=== PATIENT | male | born 1945 | race Caucasian/White ===

== ENCOUNTER 2019-03-18 14:31 | Outpatient (CLI) | payer MEDICARE, OTHER, SELFPAY ==
--- NOTE | 2019-03-18 | XR_ITS ---
WS: [id number] Chest 2 views, 03/18/2019 Clinical Data: CHRONIC COUGH Comparison: PA and lateral chest, 10/08/2016 Findings: No nodules, masses or effusions are seen. The heart is normal. The pulmonary vascularity is not increased. No pneumonia or pneumothorax is seen. There is flattening of the right diaphragm whic h is secondary to chronic injury rather than acute effusion. There is a fracture of the left sixth ri b and absence of the left seventh rib from surgery. No recurrence of the left pleural effusion is se en. The heart size is normal. No pneumonia or pneumothorax is present. The pulmonary vascularity is n ot increased. There are upper abdominal clips which may be from a cholecystectomy. XR/XR chest 2V* [id number] Impression: 1. Right pleural reaction. 2. Left rib deformity from thoracic surgery. 3. No acute cardiopulmonary disease is seen.
== END 2019-03-18 14:32 | disposition home or self-care (01) ==
LOC: RADOUTREAD 03-19 15:26
PROVIDERS: Family Provider Family Medicine; Visit Provider Family Medicine
DX: Z76.89 Persons encountering health services in other specified circumstances (principal)

== ENCOUNTER 2019-06-09 10:24 | Inpatient (IN) | payer MEDICARE, OTHER, SELFPAY ==
[2019-06-09] VITALS (16 sets, daily range): BP systolic 129–161; BP diastolic 78–97; PULSE 77–90; RESP 4–18; TEMP 36.8–36.9; O2SAT 96–98; BMI 27.9
--- NOTE | 2019-06-09 10:49 | XR_ITS ---
WS: [id number] PORTABLE CHEST HISTORY: gi bleed COMPARISON: 03/18/2019 Lung findings are slightly decreased. Blunting of the costophrenic angles. Pleural thickening at the lung bases is stable. No pneumothorax. Cardiac size: Moderately enlarged cardiac silhouette. Mediastinum/Aorta: Mild atherosclerosis aorta. Healed rib fracture in the posterior mid LEFT thorax. There is evidence for rib dissection in the LEF T thorax also. XR/XR chest 1V portable [id number] IMPRESSION: Chronic blunting of the costophrenic angles and cardiomegaly. No pneumonia.
--- NOTE | 2019-06-09 10:49 | CT_ITS ---
WS: [id number] CT ABDOMEN AND PELVIS WITH CONTRAST HISTORY: gi bleed TECHNIQUE: Imaging performed of the abdomen and pelvis with IV contrast. Single phase imaging of the abdomen. Coronal and sagittal reformats are submitted. All CT scans at [facility] use at least one of these dose optimization techniques: automated exposure control; mA and/or kV adjustment per patient size (includes targeted exams where dose is matched to clinical indication); or iterativ e reconstruction. IV CONTRAST: Omnipaque 300; 95 mL IV. Oral contrast: No DLP: 895.66 mGy.cm COMPARISON: 12/03/2017 Lower thorax: Pleural thickening and atelectasis at the lung bases, RIGHT greater than LEFT. Heart is normal size. No hiatal hernia. Liver/biliary system: Normal size with no intrahepatic dilatation. Gallbladder: Prior cholecystectomy. Pancreas: Marked fatty replacement of the pancreas. Spleen: Normal. Adrenal glands: Normal. Right kidney: Normal. Left kidney: 1 cm cortical cyst upper pole. No obstruction or solid mass. Smaller cortical cyst lower pole. Aorta: Mild atherosclerosis with no aneurysm. Lymphadenopathy: None. Free fluid: None. GI tract: Significant diverticulosis involving a large portion of the colon. Most significant burden in the descending and sigmoid colon. There is diffuse wall thickening in the distal descending throug h sigmoid. No definite diverticulitis. No abscess. Appendix not definitely seen. Abdominal wall: Small fat-containing umbilical hernia. Pelvis: Well-distended urinary bladder. Prostate gland enlargement. No adenopathy or fluid. Bones: Degenerative spondylitic changes. Anterior bridging osteophytes in the lower thoracic spine. CT/CT abdomen pelvis w con* [id number] IMPRESSION: 1. No acute intra-abdominal abscess or ascites. 2. Diffuse lyn diverticulosis. Most significant diverticular burden in the leigh ann cending and sigmoid colon. There is associated bowel wall thickening and mucosa l thickening in the descending and sigmoid region which may be related to chron ic episodes of diverticulitis. More focal thickening at the junction of the leigh ann cending and sigmoid colon. Consider colonoscopy evaluation to exclude neoplasm. 3. Prior cholecystectomy.
--- NOTE | 2019-06-09 11:00 | ED_ITS ---
HPI - General Adult General: Chief complaint: General Medical Stated complaint: RECTAL BLEEDING Time Seen by Provider: 06/09/19 10:40 Review of Systems General: Reports: 10 or more systems reviewed and unremarkable except in HPI a nd below GI: Reports: blood in stool [facility] ED PFSH: Social History Smoking and tobacco status: never smoked Physical Exam Narrative: EXAM NARRATIVE: Patient has had several bowel movements with copious amounts of bright red blood Const: COMMON NORMALS: no apparent distress, oriented x3, alert and well nourished Neck/C-Spine: COMMON NORMALS: no JVD Resp: COMMON NORMALS: normal respiratory effort, no retractions, no use of accessory muscles and clear to auscultation bilaterally AUSCULTATION: clear to auscultation bilaterally Cardio: COMMON NORMALS: no JVD, regular rate and regular rhythm RATE: regular rate RHYTHM: regular rhythm Neuro: COMMON NORMALS: oriented x3 SENSORIUM/ORIENTATION: Yes alert Course Vital Signs: Vital signs: Vital Signs Temperature 98.3 F 06/09/19 10:37 Pulse Rate 87 06/09/19 10:37 Respiratory Rate 16 06/09/19 10:37 Blood Pressure 146/88 06/09/19 10:37 Pulse Oximetry 97 06/09/19 10:37 [facility] - General Adult Lab Data: Labs: Lab Results 06/09/19 06/09/19 06/09/19 Range/Units 11:17 11:17 11:17 WBC 6.1 (4.0-10.0) 10^3/ uL RBC 4.39 (4.1-5.3) 10^6/u L Hgb 13.7 (11.7-16.6) g/dL Hct 41.0 L (42.0-52.0) % MCV 93.4 (80-94) fL MCH 31.2 (28.0-34.0) pg MCHC 33.4 (30.0-36.0) g/dL RDW 13.2 (12.1-15.1) % Plt Count 200 (130-400) 10^3/c mm MPV 11.4 H (7.4-10.4) fL Neut % (Auto) 67.5 % Lymph % (Auto) 22.4 % [place] % (Auto) 8.5 % Eos % (Auto) 0.8 % Baso % (Auto) 0.3 % Neut # (Auto) 4.1 (1.8-7.7) 10^3/u L Lymph # (Auto) 1.4 (0.8-4.8) 10^3/u L [place] # (Auto) 0.5 (0.2-0.9) 10^3/u L Eos # (Auto) 0.1 (0.0-0.8) 10^3/u L Baso # (Auto) 0.0 (0.0-0.1) 10^3/u L Nucleated RBC % (a uto) 0 % Nucleated RBCs # 0.0 /100WBC PT 13.30 (10.5-13.3) SECO NDS INR 1.01 (0.8-1.2) APTT 31.2 (23.9-36.7) SECO NDS Sodium 138 (136-145) mmol/L Potassium 4.1 (3.5-5.1) mmol/L Chloride 101 (98-107) mmol/L Carbon Dioxide 26 (22-29) mmol/L Anion Gap 15.1 (5-19) BUN 22 (8-23) mg/dL Creatinine 0.8 (0.7-1.2) mg/dL Glucose 96 (65-115) mg/dL Calculated Osmolal ity 283 L (285-295) mOsm/k g Calcium 9.0 (8.5-10.5) mg/dL Total Bilirubin 0.6 (0.15-1.2) mg/dL AST 19 (0-40) U/L ALT 13 (0-41) U/L Alkaline Phosphata se 96 (40-130) IU/L Total Protein 6.9 (6.6-8.7) g/dL Albumin 4.1 (3.5-5.2) g/dL Globulin 2.8 (1.3-4.6) g/dL Lipase 6 L (13-60) U/L Discharge Plan Discharge Patient Disposition: Admitted As Inpatient Clinical Impression: Acute GI bleeding Condition: Stable Referrals: Maco Hurtado MD [Family Provider] - Coding Level of Care Code ED Parasitology Teacher for Chg Fwd Exam Expanded Problem Focused
[2019-06-09] MEDS: sodium chloride 0.9% 500 ML IV (11:20)
[2019-06-09] MEDS: pantoprazole 40 mg SDV IVP ×2 (11:20→23:06)
[2019-06-09 11:29] LABS: Basophils % 0.3 %; Eosinophils # 0.1 10^3/uL (0.0-0.8); Eosinophils % 0.8 %; Hemoglobin 13.7 g/dL (11.7-16.6); Lymphocytes # 1.4 10^3/uL (0.8-4.8); Lymphocytes % 22.4 %; Mean Corpuscular HGB Conc 33.4 g/dL (30.0-36.0); Mean Corpuscular Hemoglobin 31.2 pg (28.0-34.0); Mean Corpuscular Volume 93.4 fL (80-94); Mean Platelet Volume 11.4 fL (7.4-10.4); Monocytes # 0.5 10^3/uL (0.2-0.9); Monocytes % 8.5 %; Neutrophils # 4.1 10^3/uL (1.8-7.7); Neutrophils % 67.5 %; Nucleated Red Blood Cells % 0 %; Platelet Count 200 10^3/cmm (130-400); Red Blood Count 4.39 10^6/uL (4.1-5.3); Red Cell Distribution Width 13.2 % (12.1-15.1); White Blood Count 6.1 10^3/uL (4.0-10.0)
[2019-06-09 11:41] LABS: Alanine Aminotransferase 13 U/L (0-41); Albumin Level 4.1 g/dL (3.5-5.2); Alkaline Phosphatase 96 IU/L (40-130); Anion Gap 15.1 (5-19); Aspartate Amino Transferase 19 U/L (0-40); Blood Urea Nitrogen 22 mg/dL (8-23); Carbon Dioxide 26 mmol/L (22-29); Chloride 101 mmol/L (98-107); Globulin 2.8 g/dL (1.3-4.6); Glucose 96 mg/dL (65-115); Lipase 6 U/L (13-60); Osmolality Calculated 283 mOsm/kg (285-295); Potassium 4.1 mmol/L (3.5-5.1); Sodium 138 mmol/L (136-145); Total Bilirubin 0.6 mg/dL (0.15-1.2); Total Protein 6.9 g/dL (6.6-8.7)
[2019-06-09 11:42] LABS: INR 1.01 (0.8-1.2); Partial Thromboplastin Time 31.2 SECONDS (23.9-36.7)
[2019-06-09 12:48] LABS: Lactate (Lactic Acid level) 1.5 mmol/L (0.5-2.2)
[2019-06-09] MEDS: pantoprazole 40 MG in sodium chloride 0.9% (plus) 100 ML 20 MG IV (12:53)
[2019-06-09] MEDS: sodium chloride 0.9% 1,000 ML 100 ML IV ×2 (13:35→23:07)
--- NOTE | 2019-06-09 14:47 | P.HP_ITS ---
Providers/Chief Complaint Admitting Physician: Robbin Quinonez Chief Complaint: GI BLEED History of Present Illness Alessandro Panda is a pleasant 73 year old male with history of recurrent pleural effusion, DM2, episodic hypertension, postanesthesia hypotension, on prophylactic aspirin 81 mg which she forgot to take yesterday and did not take today, presented due to bright red blood per rectum with multiple current jelly bowel movements starting yesterday at 1 PM yesterday. He reports got in touch with Dr. esparzaterday, and was told if it does not improve to get himself assessed. He does not take any other blood thinners. He denies taking NSAIDs. On CT back in 2018 noted to have diverticulosis. He reports that he has had a colonoscopy probably within 5 years, but does not remember the exact date. He denies any abdominal pain. He has had no nausea or vomiting. No fever, chills, cough, shortness of breath, headache, or other similar complaints. In ER his blood pressure is 156/90, heart rate 85, hemoglobin 13.7. Review of Systems Const: Denies: fever, chills, body aches or malaise Eyes: Denies: change in vision or eye redness ENMT: Denies: throat pain, oral sores/lesions or ear pain Card: Denies: chest pain, edema, pre-syncope or shortness of breath on exertion Resp: Denies: shortness of breath, productive cough, change in phlegm color or coughing up blood GI: Reports: blood in stool; Denies: abdominal pain, nausea, vomiting, diarrhea or constipation : Denies: flank pain, difficulty urinating, urinary frequency or blood in urine Musc: Denies: back pain, joint swelling or redness Skin/Breast: Denies: rash, sores or new lesion Neuro: Denies: headache, numbness in extremities, weakness in extremities, dizziness, confusion or seizure-like activity Endo: Denies: excessive urination or excessive thirst Geronimo/Lymph: Denies: easy bleeding or purpura All/Imm: Denies: hives, throat swelling or tongue swelling Medications/Allergies Home Medications Medication Instructions Recorded Confirmed Last Taken Type ascorbic acid (vitamin C) [Vitamin 1,000 mg PO BID 06/09/19 06/09/19 06/08/19 History C] aspirin 81 mg PO DAILY 06/09/19 06/09/19 06/06/19 History diphenhydramine HCl [Benadryl] 25 mg PO BEDTIME PRN 06/09/19 06/09/19 06/07/19 History esomeprazole magnesium 20 mg PO DAILY 06/09/19 06/09/19 06/08/19 History metformin 500 mg PO BEDTIME 06/09/19 06/09/19 06/08/19 History metoprolol tartrate 25 mg PO DAILY 06/09/19 06/09/19 06/08/19 History multivitamin 1 tab PO DAILY 06/09/19 06/09/19 06/08/19 History Allergies Allergy/AdvReac Type Severity Reaction Status Date / Time No Known Allergies Allergy Verified 06/09/19 10:35 PFSH Acute PFSH: Medical History DM type 2 (diabetes mellitus, type 2) Pleural condition Pleurodesis ~2016? Recurrent pleural effusion on left Family History Father Liver disease Mother Colon cancer Smoker Hypertension Atherosclerosis Social History Smoking and tobacco status: light tobacco smoker pipe Pipe Details: Occ in the past Alcohol intake: never Substance/Drug Use: never Lives independently: Yes Household members: spouse Marital status: Current occupational status: retired Vitals/I&O/Wt Last Vital Signs Temp 98.3 F 06/09/19 10:37 Pulse 85 06/09/19 13:09 Resp 16 06/09/19 13:09 BP 156/90 06/09/19 13:09 Pulse Ox 97 06/09/19 13:09 Weight last 48 hrs Weight 93.44 kg Physical Exam Const: COMMON NORMALS: no apparent distress and oriented x3 OTHER: Very pleasant gentleman. Conversant. Facemask on. HENMT: COMMON NORMALS: oropharynx normal Neck/C-Spine: COMMON NORMALS: no JVD Resp: COMMON NORMALS: normal respiratory effort and clear to auscultation bilaterally AUSCULTATION: clear to auscultation bilaterally Cardio: COMMON NORMALS: no JVD, regular rhythm, S1 normal heart sound, S2 normal heart sound and no murmurs RHYTHM: regular rhythm HEART SOUNDS: S1 normal and S2 normal GI: COMMON NORMALS: normal to inspection, nondistended, normoactive bowel sounds, soft to palpation and non-tender PALPATION: Yes soft OTHER: About 50-75 cc of currant appearing stool in the commode. Extremity: COMMON NORMALS: no joint enlargement and no pedal edema Neuro: COMMON NORMALS: oriented x3 and moves all extremities Skin: COMMON NORMALS: no rashes or lesions noted GENERAL SKIN EXAM: no rashes or lesions noted Data : 06/09/19 11:17 06/09/19 11:17 A&P Assessment and plan (1) Acute GI bleeding: Currently only appearing stools, multiple bowel movement since 1 PM yeste rday. He missed his yesterday's aspirin dose, and did not take it today. Hold at this time. On prior CT history of diverticulosis, suspect this is probably the cause of his bleed, and he has had a colonoscopy he thinks within about 5 years, although I do not see a record and old [employer]. Appreciate surgical evaluation. We will recheck hemoglobin. Monitor for need for transfusion. For now he is maintained n.p.o. Monitor hemodynamics in ICU. Status: Acute (2) DM type 2 (diabetes mellitus, type 2): He is n.p.o. for now. Hold metformin for now while in the hospital. Low-dose sliding scale. Status: Acute Additional A&P Information She reports occasional hypotension with anesthesia, states that had episode of low blood pressure for which required several treatments after his surgery about 3 years ago which he describes was done due to recurrent pleural effusion, possibly VATS and pleurodesis. Attestations Medical Necessity Statement*: Admission of over 2 midnights is admitted for assessment management of acute GI bleeding while on antiplatelet medication. Coding Level of Care Code Acute Sign Writer Hand for Javed Rust Diagnoses Acute GI bleeding K92.2 DM type 2 (diabetes mellitus, type 2) E11.9
[2019-06-09 16:37] LABS: Hemoglobin 12.3 g/dL (11.7-16.6)
[2019-06-09 17:27] LABS: Glucose Point of Care 97 mg/dL (70-110)
--- NOTE | 2019-06-09 19:33 | PM.CONSULT ---
Providers/Reason For Consult Consulting Physican/Specialty*: Robbin Quinonez Reason for Consult*: Hematochezia Attending Physician: Robbin Quinonez History of Present Illness History of Present Illness Alessandro Panda is a 73 year old male who is otherwise pretty healthy and presented to the ER with significant amount of bleeding per rectum yesterday. Patient states that he had some lower abdominal pain, but denies any nausea vomiting constipation or diarrhea. No similar episodes in the past. He had colonoscopy 2 years ago when he was told that he had diverticulosis. No significant weight loss. Since admission he has not had any further bloody bowel movements overnight Review of Systems General: Reports: 10 or more systems reviewed and unremarkable except in HPI and below Meds/Allergies Home Medications and Allergies Home Medications Medication Instructions Recorded Confirmed Last Taken Type Benadryl 25 mg PO BEDTIME PRN 06/09/19 06/09/19 06/07/19 History Vitamin C 1,000 mg PO BID 06/09/19 06/09/19 06/08/19 History esomeprazole magnesium 20 mg PO DAILY 06/09/19 06/09/19 06/08/19 History metformin 500 mg PO BEDTIME 06/09/19 06/09/19 06/08/19 History metoprolol tartrate 25 mg PO DAILY 06/09/19 06/09/19 06/08/19 History multivitamin 1 tab PO DAILY 06/09/19 06/09/19 06/08/19 History Allergies Allergy/AdvReac Type Severity Reaction Status Date / Time No Known Allergies Allergy Verified 06/09/19 10:35 Current Medications Current Medications Generic Name Dose Route Start Last Admin Trade Name Freq PRN Reason Stop Dose Admin Sodium Chloride 1,000 mls @ 100 mls/hr 06/09/19 12:15 06/09/19 13:35 Sodium Chloride 0.9% IV 100 mls/hr .Q10H MIKE Administration Insulin Aspart 0 unit 06/09/19 18:00 06/09/19 17:25 Novolog SUBCUT Not Given TIDWM MIKE Protocol PFSH Acute PFSH: Medical History DM type 2 (diabetes mellitus, type 2) Pleural condition Pleurodesis ~2017? Recurrent pleural effusion on left Surgical History History of lung surgery Status post colonoscopy Family History Father Liver disease Mother Colon cancer Smoker Hypertension Atherosclerosis Social History Smoking and tobacco status: light tobacco smoker pipe Pipe Details: Occ in the past Alcohol intake: never Substance/Drug Use: never Lives independently: Yes Household members: spouse Marital status: Current occupational status: retired Vitals/I&O/Wt Last Vital Signs Temp 98.4 F 06/09/19 14:00 Pulse 89 06/09/19 18:06 Resp 18 06/09/19 18:00 BP 148/78 06/09/19 18:00 Pulse Ox 96 06/09/19 18:06 06/09/19 06/09/19 06/09/19 06:59 14:59 22:59 Output Total 200 / 200 Balance -200 / -200 Weight last 48 hrs Weight 206 lb Physical Exam Narrative: EXAM NARRATIVE: HEENT: Normocephalic Eye: Sclera /conjunctiva normal Respiratory and chest: Bilateral clear breath sounds on auscultation Cardiovascular: Normal S1 and S2 heart sounds Abdomen: Soft to palpation Neurological: Oriented to place person and time Skin: Intact, no lesions appreciated on gross exam A&P Assessment and plan (1) Hematochezia: 73-year-old gentleman who is currently not on anticoagulation, is currently hemodynamically stable after he was admitted with hematochezia. He has known history of diverticulosis and there is no evidence of active bleeding on CT abdomen and pelvis that was performed in the ER. If patient does not have any further bleeding and his hemoglobin remained stable then we will hold off on repeating colonoscopy. But if he continues to bleed tonight and tomorrow then we will plan for colonoscopy the day after. Status: Acute Coding Level of Care Code Acute Core Shaper Top for Javed Rust Diagnoses Hematochezia K92.1
[2019-06-09 21:17] LABS: Hemoglobin 11.9 g/dL (11.7-16.6)
[2019-06-10] VITALS (17 sets, daily range): BP systolic 101–139; BP diastolic 59–79; PULSE 68–94; RESP 13–20; TEMP 36.9–37; O2SAT 92–99
[2019-06-10 00:41] LABS: Hemoglobin 11.7 g/dL (11.7-16.6)
[2019-06-10 04:49] LABS: Basophils % 0.2 %; Eosinophils # 0.1 10^3/uL (0.0-0.8); Eosinophils % 0.9 %; Hematocrit 33.6 % (42.0-52.0); Hemoglobin 10.9 g/dL (11.7-16.6); Lymphocytes # 1.5 10^3/uL (0.8-4.8); Lymphocytes % 18.7 %; Mean Corpuscular HGB Conc 32.4 g/dL (30.0-36.0); Mean Corpuscular Hemoglobin 30.4 pg (28.0-34.0); Mean Corpuscular Volume 93.9 fL (80-94); Monocytes # 0.7 10^3/uL (0.2-0.9); Neutrophils # 5.8 10^3/uL (1.8-7.7); Neutrophils % 70.7 %; Nucleated Red Blood Cells % 0 %; Platelet Count 196 10^3/cmm (130-400); Red Blood Count 3.58 10^6/uL (4.1-5.3); Red Cell Distribution Width 13.2 % (12.1-15.1); White Blood Count 8.2 10^3/uL (4.0-10.0)
[2019-06-10 05:08] LABS: Anion Gap 13.3 (5-19); Blood Urea Nitrogen 16 mg/dL (8-23); Calcium 8.1 mg/dL (8.5-10.5); Carbon Dioxide 26 mmol/L (22-29); Chloride 103 mmol/L (98-107); Glucose 100 mg/dL (65-115); Osmolality Calculated 282 mOsm/kg (285-295); Potassium 4.3 mmol/L (3.5-5.1); Sodium 138 mmol/L (136-145)
--- NOTE | 2019-06-10 05:55 | PM.PN ---
Subjective Subjective: Interval history: Patient had stopped bleeding is doing when I saw him but overnight he had 3 bloody bowel movements. Patient denies anynausea or vomiting. He complains of mild left lower quadrant pain Vitals/I&O/Wt Last Vital Signs Temp 98.4 F 06/09/19 14:00 Pulse 72 06/10/19 04:00 Resp 18 06/10/19 04:00 BP 124/59 06/10/19 04:00 Pulse Ox 95 06/10/19 04:00 06/09/19 06/09/19 06/10/19 14:59 22:59 06:59 Intake Total 1000 / 1000 Output Total 200 / 200 Balance -200 / 800 1000 / 800 Weight last 48 hrs Weight 206 lb Physical Exam Narrative: EXAM NARRATIVE: Abdomen: Soft, nontender, nondistended Data : 06/10/19 04:05 06/10/19 04:05 A&P Assessment and plan (1) Acute GI bleedin-year-old gentleman with hematochezia. His hemoglobin is down to 10.9 today. Plan for colonoscopy under [facility] tomorrow. Initially my hope was that when I saw him yesterday he had stopped bleeding and that we could schedule him as an outpatient but since he bled overnight, we will plan for colonoscopy under [facility] tomorrow Status: Acute Attestations Medical Necessity Statement*: GI bleed Coding Level of Care Code Acute Surgical Sales Representative for Javed Rust Diagnoses Acute GI bleeding K92.2
[2019-06-10 08:04] LABS: Glucose Point of Care 99 mg/dL (70-110)
[2019-06-10] MEDS: pantoprazole 40 mg SDV IVP ×2 (08:25→23:09)
[2019-06-10] MEDS: sodium chloride 0.9% 1,000 ML 100 ML IV (08:26)
--- NOTE | 2019-06-10 09:52 | P.PN_ITS ---
Subjective Subjective: Interval history: States he is a little bit better. Having some lower abdominal discomfort. So far no further bloody stool this morning. Vitals/I&O/Wt Last Vital Signs Temp 98.4 F 06/10/19 08:00 Pulse 94 06/10/19 08:00 Resp 18 06/10/19 08:00 BP 104/60 06/10/19 08:00 Pulse Ox 95 06/10/19 08:00 06/09/19 06/10/19 06/10/19 22:59 06:59 14:59 Intake Total 1000 / 1000 1451.667 / 1451.667 Output Total 200 / 200 Balance -200 / -200 1000 / 800 1451.667 / 1451.667 Weight last 48 hrs Weight 93.44 kg Physical Exam Const: COMMON NORMALS: no apparent distress and oriented x3 OTHER: Awake, alert. Not in distress. HENMT: COMMON NORMALS: oropharynx normal Neck/C-Spine: COMMON NORMALS: no JVD Resp: COMMON NORMALS: normal respiratory effort and clear to auscultation bilaterally AUSCULTATION: clear to auscultation bilaterally Cardio: COMMON NORMALS: no JVD, regular rhythm, S1 normal heart sound, S2 normal heart sound and no murmurs RHYTHM: regular rhythm HEART SOUNDS: S1 normal and S2 normal GI: COMMON NORMALS: normal to inspection, nondistended, normoactive bowel sounds, soft to palpation and non-tender PALPATION: Yes soft Extremity: COMMON NORMALS: no joint enlargement and no pedal edema Neuro: COMMON NORMALS: oriented x3 and moves all extremities Skin: COMMON NORMALS: no rashes or lesions noted GENERAL SKIN EXAM: no rashes or lesions noted Data : 06/10/19 04:05 06/10/19 04:05 A&P Assessment and plan (1) Acute GI bleeding: Hemoglobin did trend down to 10.9 overnight. Pending surgery decision for endoscopic evaluation. Per review of surgical note I see leaning to inpatient evaluation tomorrow. Recurrent current jelly stools on admit. Holding aspirin. Per discussion with him he takes it for primary prophylaxis. On prior CT history of diverticulosis, suspect this is probably the cause of his bleed, and he has had a colonoscopy he thinks within about 5 years, although I do not see a record and old [facility]. Appreciate surgical evaluation. We will recheck hemoglobin. Monitor for need for transfusion. CLD Monitor hemodynamics in ICU. Status: Acute (2) DM type 2 (diabetes mellitus, type 2): He is n.p.o. for now. Hold metformin for now while in the hospital. Low-dose sliding scale. Status: Acute Additional A&P Information She reports occasional hypotension with anesthesia, states that had episode of low blood pressure for which required several treatments after his surgery about 3 years ago which he describes was done due to recurrent pleural effusion, possibly VATS and pleurodesis. Attestations Medical Necessity Statement*: Continue admission for assessment of management of GI bleeding. Acute blood loss anemia. Coding Level of Care Code Acute Vocal Artist for [facility] Javed Diagnoses Acute GI bleeding K92.2 DM type 2 (diabetes mellitus, type 2) E11.9
[2019-06-10 11:45] LABS: Glucose Point of Care 122 mg/dL (70-110)
[2019-06-10] MEDS: magnesium citrate Btl 296 mL PO ×2 (13:06→19:14)
[2019-06-10] MEDS: ondansetron 2 mg/ML SDV 2 mL 4 MG IVP (13:07)
[2019-06-10] MEDS: bisacodyl 5 mg Tablet 40 MG PO (14:47)
[2019-06-10 18:25] LABS: Glucose Point of Care 107 mg/dL (70-110)
[2019-06-10] MEDS: sodium chloride 0.9% 1,000 ML 30 ML IV (19:14)
[2019-06-11] VITALS (11 sets, daily range): BP systolic 80–132; BP diastolic 41–78; PULSE 61–86; RESP 12–20; TEMP 36.4–36.7; O2SAT 95–99
[2019-06-11 04:44] LABS: Basophils % 0.6 %; Eosinophils # 0.1 10^3/uL (0.0-0.8); Eosinophils % 1.3 %; Hematocrit 34.2 % (42.0-52.0); Hemoglobin 10.9 g/dL (11.7-16.6); Lymphocytes # 1.3 10^3/uL (0.8-4.8); Lymphocytes % 21.7 %; Mean Corpuscular HGB Conc 31.9 g/dL (30.0-36.0); Mean Corpuscular Volume 94.2 fL (80-94); Mean Platelet Volume 12.2 fL (7.4-10.4); Monocytes # 0.7 10^3/uL (0.2-0.9); Monocytes % 11.2 %; Neutrophils % 64.7 %; Nucleated Red Blood Cells % 0 %; Platelet Count 179 10^3/cmm (130-400); Red Blood Count 3.63 10^6/uL (4.1-5.3); Red Cell Distribution Width 13.2 % (12.1-15.1); White Blood Count 6.2 10^3/uL (4.0-10.0)
[2019-06-11 05:01] LABS: Blood Urea Nitrogen 10 mg/dL (8-23); Calcium 8.7 mg/dL (8.5-10.5); Carbon Dioxide 23 mmol/L (22-29); Chloride 106 mmol/L (98-107); Glucose 114 mg/dL (65-115); Osmolality Calculated 285 mOsm/kg (285-295); Sodium 139 mmol/L (136-145)
[2019-06-11 07:31] LABS: Glucose Point of Care 114 mg/dL (70-110)
[2019-06-11] MEDS: pantoprazole 40 mg SDV IVP ×2 (08:45→22:29)
--- NOTE | 2019-06-11 09:18 | PM.PN ---
Subjective Subjective: Interval history: Some lower abdominal discomfort due to multiple bowel movements. Otherwise is doing well. Notes that had low blood pressure in the past after anesthesia for surgery. Vitals/I&O/Wt Last Vital Signs Temp 98.4 F 06/10/19 08:00 Pulse 74 06/11/19 08:00 Resp 18 06/11/19 08:00 BP 126/66 06/11/19 08:00 Pulse Ox 96 06/11/19 08:00 06/10/19 06/11/19 06/11/19 22:59 06:59 14:59 Intake Total 1560 / 3371.667 Balance 1560 / 3371.667 Weight last 48 hrs Weight 93.44 kg Physical Exam Const: COMMON NORMALS: no apparent distress and oriented x3 OTHER: Awake, alert. Not in distress. HENMT: COMMON NORMALS: oropharynx normal Neck/C-Spine: COMMON NORMALS: no JVD Resp: COMMON NORMALS: normal respiratory effort and clear to auscultation bilaterally AUSCULTATION: clear to auscultation bilaterally Cardio: COMMON NORMALS: no JVD, regular rhythm, S1 normal heart sound, S2 normal heart sound and no murmurs RHYTHM: regular rhythm HEART SOUNDS: S1 normal and S2 normal GI: COMMON NORMALS: normal to inspection, nondistended, normoactive bowel sounds, soft to palpation and non-tender PALPATION: Yes soft Extremity: COMMON NORMALS: no joint enlargement and no pedal edema Neuro: COMMON NORMALS: oriented x3 and moves all extremities Skin: COMMON NORMALS: no rashes or lesions noted GENERAL SKIN EXAM: no rashes or lesions noted Data : 06/11/19 04:15 06/11/19 04:15 A&P Assessment and plan (1) Acute GI bleeding: Still has had some loose bowel movements, although denies fresh blood. Hemoglobin appears stabilized at 10.9. Preparations for lower endoscopy today. Recurrent current jelly stools on admit. Holding aspirin. Per discussion with him he takes it for primary prophylaxis. CT history of diverticulosis, suspect this is probably the cause of his bleed, and he has had a colonoscopy he thinks within about 5 years, although I do not see a record [facility]. Thickening in distal colon on current CT scan. Possibly from prior diverticulitis, although need to exclude malignancy. Discussed with him. Appreciate surgical evaluation. Monitor hemodynamics in ICU. Status: Acute (2) DM type 2 (diabetes mellitus, type 2): He is n.p.o. for now. Hold metformin for now while in the hospital. Low-dose sliding scale. Status: Acute Additional A&P Information Reports history of episode of hypotension with anesthesia. Discussed with anesthesiology. It does appear that it was after general anesthesia about 3 years ago during VATS, pleurodesis. Attestations Medical Necessity Statement*: Continue admission for assessment of management of acute blood loss anemia, GI bleeding. Coding Level of Care Code Acute Emergency Veterinary Technician for [facility] Fwd Diagnoses Acute GI bleeding K92.2 DM type 2 (diabetes mellitus, type 2) E11.9
--- NOTE | 2019-06-11 09:30 | ANES.PREANE2 ---
Pre-Anesthetic Assessment Pre-Anesthetic Assessment: Height/Weight: Height 1.83 m Weight 93.44 kg Temp Pulse Resp BP Pulse Ox 98.4 F 74 18 126/66 96 06/10/19 08:00 06/11/19 08:00 06/11/19 08:00 06/11/19 08:00 06/11/19 08:00 Preop Diagnosis: GI bleed Proposed Procedure: Operation Date: 06/11/19 08:55 Proposed Procedures p Colonoscopy(Not Applicable) - Matteo Melendez MD Familial anesthetic complications: Hypotension requiring albumin after a VATs surgery - patient stated They were really worried about me Was Beta Audie taken within 24 hours: Yes Last intake: NPO > 8 hrs Social: Social History: No alcohol and No tobacco Exam: Pre-Anes Outpt Exam: alert, oriented x 3, clear to auscultation bilaterally and regular rate & rhythm Airway: Cervical ROM: WNL MP: 3 Dentition: Chipped Pulmonary: Comments: recurent pleural effusion (L) - S/p VATs/pleurodesis GI: Comments: rectal bleed Metabolic: Metabolic: DM Anesthetic Plan: ASA status: 3 Anesthesia: MAC Risk of > 500 ml blood loss (7ml/kg in children): No Meds/Allergies Current Medications: Current Medications Generic Name Dose Route Start Last Admin Trade Name Freq PRN Reason Stop Dose Admin Sodium Chloride 1,000 mls @ 30 ml s/hr 06/10/19 06:00 06/10/19 19:14 Sodium Chloride 0.9% IV 30 mls/hr .Q24H MIKE Administration Insulin Aspart 0 unit 06/09/19 18:00 06/11/19 07:28 Novolog SUBCUT Not Given TIDWM MIKE Protocol Ondansetron HCl 4 mg 06/09/19 12:11 06/10/19 13:07 Zofran IVP 4 mg Q6H PRN Administration NAUSEA AND VOMITI NG Pantoprazole Sodiu m 40 mg 06/09/19 22:45 06/11/19 08:45 Protonix IVP 40 mg Q12H MIKE Administration PFSH Anesthesia PFSH: Medical History DM type 2 (diabetes mellitus, type 2) Pleural condition Pleurodesis ~2017? Recurrent pleural effusion on left Surgical History (Updated 06/10/19 @ 05:57 by Matteo Melendez MD) History of lung surgery Status post colonoscopy Family History Father Liver disease Mother Colon cancer Smoker Hypertension Atherosclerosis Social History Smoking and tobacco status: light tobacco smoker pipe Pipe Details: Occ in the past Alcohol intake: never Substance/Drug Use: never Lives independently: Yes Household members: spouse Marital status: Current occupational status: retired Data Anesthesia CBC & Chem 7: 06/11/19 04:15 06/11/19 04:15 Other Labs: Laboratory Results - last 48 hr 06/09/19 06/09/19 06/09/19 11:17 11:17 11:17 WBC 6.1 RBC 4.39 Hgb 13.7 Hct 41.0 L MCV 93.4 MCH 31.2 MCHC 33.4 RDW 13.2 Plt Count 200 MPV 11.4 H Neut % (Auto) 67.5 Lymph % (Auto) 22.4 [place] % (Auto) 8.5 Eos % (Auto) 0.8 Baso % (Auto) 0.3 Neut # (Auto) 4.1 Lymph # (Auto) 1.4 [place] # (Auto) 0.5 Eos # (Auto) 0.1 Baso # (Auto) 0.0 Nucleated RBC % (auto) 0 Nucleated RBCs # 0.0 PT 13.30 INR 1.01 APTT 31.2 Sodium 138 Potassium 4.1 Chloride 101 Carbon Dioxide 26 Anion Gap 15.1 BUN 22 Creatinine 0.8 Glucose 96 POC Glucose Calculated Osmolality 283 L Lactate Calcium 9.0 Total Bilirubin 0.6 AST 19 ALT 13 Alkaline Phosphatase 96 Total Protein 6.9 Albumin 4.1 Globulin 2.8 Lipase 6 L Blood Type Rho(D) Type Antibody Screen Crossmatch 06/09/19 06/09/19 06/09/19 11:17 11:17 15:58 WBC RBC Hgb 12.3 Hct MCV MCH MCHC RDW Plt Count MPV Neut % (Auto) Lymph % (Auto) [place] % (Auto) Eos % (Auto) Baso % (Auto) Neut # (Auto) Lymph # (Auto) [place] # (Auto) Eos # (Auto) Baso # (Auto) Nucleated RBC % (auto) Nucleated RBCs # PT INR APTT Sodium Potassium Chloride Carbon Dioxide Anion Gap BUN Creatinine Glucose POC Glucose Calculated Osmolality Lactate 1.5 Calcium Total Bilirubin AST ALT Alkaline Phosphatase Total Protein Albumin Globulin Lipase Blood Type O Positive Rho(D) Type Positive Antibody Screen Negative Crossmatch See Detail 06/09/19 06/09/19 06/10/19 17:24 20:50 00:20 WBC RBC Hgb 11.9 11.7 Hct MCV MCH MCHC RDW Plt Count MPV Neut % (Auto) Lymph % (Auto) [place] % (Auto) Eos % (Auto) Baso % (Auto) Neut # (Auto) Lymph # (Auto) [place] # (Auto) Eos # (Auto) Baso # (Auto) Nucleated RBC % (auto) Nucleated RBCs # PT INR APTT Sodium Potassium Chloride Carbon Dioxide Anion Gap BUN Creatinine Glucose POC Glucose 97 Calculated Osmolality Lactate Calcium Total Bilirubin AST ALT Alkaline Phosphatase Total Protein Albumin Globulin Lipase Blood Type Rho(D) Type Antibody Screen Crossmatch 06/10/19 06/10/19 06/10/19 04:05 04:05 07:44 WBC 8.2 RBC 3.58 L Hgb 10.9 L Hct 33.6 L MCV 93.9 MCH 30.4 MCHC 32.4 RDW 13.2 Plt Count 196 MPV 12.0 H Neut % (Auto) 70.7 Lymph % (Auto) 18.7 [place] % (Auto) 9.0 Eos % (Auto) 0.9 Baso % (Auto) 0.2 Neut # (Auto) 5.8 Lymph # (Auto) 1.5 [place] # (Auto) 0.7 Eos # (Auto) 0.1 Baso # (Auto) 0.0 Nucleated RBC % (auto) 0 Nucleated RBCs # 0.0 PT INR APTT Sodium 138 Potassium 4.3 Chloride 103 Carbon Dioxide 26 Anion Gap 13.3 BUN 16 Creatinine 0.9 Glucose 100 POC Glucose 99 Calculated Osmolality 282 L Lactate Calcium 8.1 L Total Bilirubin AST ALT Alkaline Phosphatase Total Protein Albumin Globulin Lipase Blood Type Rho(D) Type Antibody Screen Crossmatch 06/10/19 06/10/19 06/11/19 11:27 18:20 04:15 WBC 6.2 RBC 3.63 L Hgb 10.9 L Hct 34.2 L MCV 94.2 H MCH 30.0 MCHC 31.9 RDW 13.2 Plt Count 179 MPV 12.2 H Neut % (Auto) 64.7 Lymph % (Auto) 21.7 [place] % (Auto) 11.2 Eos % (Auto) 1.3 Baso % (Auto) 0.6 Neut # (Auto) 4.0 Lymph # (Auto) 1.3 [place] # (Auto) 0.7 Eos # (Auto) 0.1 Baso # (Auto) 0.0 Nucleated RBC % (auto) 0 Nucleated RBCs # 0.0 PT INR APTT Sodium Potassium Chloride Carbon Dioxide Anion Gap BUN Creatinine Glucose POC Glucose 122 107 Calculated Osmolality Lactate Calcium Total Bilirubin AST ALT Alkaline Phosphatase Total Protein Albumin Globulin Lipase Blood Type Rho(D) Type Antibody Screen Crossmatch 06/11/19 06/11/19 04:15 07:25 WBC RBC Hgb Hct MCV MCH MCHC RDW Plt Count MPV Neut % (Auto) Lymph % (Auto) [place] % (Auto) Eos % (Auto) Baso % (Auto) Neut # (Auto) Lymph # (Auto) [place] # (Auto) Eos # (Auto) Baso # (Auto) Nucleated RBC % (auto) Nucleated RBCs # PT INR APTT Sodium 139 Potassium 4.0 Chloride 106 Carbon Dioxide 23 Anion Gap 14.0 BUN 10 Creatinine 0.9 Glucose 114 POC Glucose 114 Calculated Osmolality 285 Lactate Calcium 8.7 Total Bilirubin AST ALT Alkaline Phosphatase Total Protein Albumin Globulin Lipase Blood Type Rho(D) Type Antibody Screen Crossmatch Cardiac Studies: No Data to Display
[2019-06-11 11:12] LABS: Glucose Point of Care 145 mg/dL (70-110)
--- NOTE | 2019-06-11 15:06 | PC.NURSE ---
Patient transferred to [facility]. All belongings sent with patient. Patient oriented to room and call light within reach.
[2019-06-11 17:17] LABS: Glucose Point of Care 92 mg/dL (70-110)
--- NOTE | 2019-06-11 18:14 | PC.NURSE ---
Addendum entered by Harpreet Barron RN 06/11/19 18:15: NOTIFIED. Original Note: PT IS REFUSING IV FLUIDS.
[2019-06-11 21:54] LABS: Glucose Point of Care 140 mg/dL (70-110)
[2019-06-12] VITALS (7 sets, daily range): BP systolic 97–116; BP diastolic 59–69; PULSE 63–83; RESP 16–18; TEMP 36.7–36.9; O2SAT 95–97
[2019-06-12 05:33] LABS: Basophils % 0.5 %; Eosinophils # 0.2 10^3/uL (0.0-0.8); Eosinophils % 2.9 %; Hematocrit 31.2 % (42.0-52.0); Lymphocytes # 1.6 10^3/uL (0.8-4.8); Mean Corpuscular HGB Conc 32.1 g/dL (30.0-36.0); Mean Corpuscular Hemoglobin 30.2 pg (28.0-34.0); Mean Corpuscular Volume 94.3 fL (80-94); Mean Platelet Volume 12.2 fL (7.4-10.4); Monocytes # 0.7 10^3/uL (0.2-0.9); Monocytes % 11.9 %; Neutrophils # 3.4 10^3/uL (1.8-7.7); Neutrophils % 57.4 %; Nucleated Red Blood Cells % 0 %; Platelet Count 192 10^3/cmm (130-400); Red Blood Count 3.31 10^6/uL (4.1-5.3); Red Cell Distribution Width 13.3 % (12.1-15.1); White Blood Count 5.9 10^3/uL (4.0-10.0)
[2019-06-12 05:55] LABS: Anion Gap 12.8 (5-19); Blood Urea Nitrogen 10 mg/dL (8-23); Calcium 8.5 mg/dL (8.5-10.5); Carbon Dioxide 27 mmol/L (22-29); Chloride 104 mmol/L (98-107); Glucose 113 mg/dL (65-115); Osmolality Calculated 287 mOsm/kg (285-295); Potassium 3.8 mmol/L (3.5-5.1); Sodium 140 mmol/L (136-145)
[2019-06-12 06:38] LABS: Glucose Point of Care 120 mg/dL (70-110)
--- NOTE | 2019-06-12 07:53 | ANE.PACU2 ---
 Inpatient post-anesthesia follow up: Airway intact: Yes Vital signs: Temperature 98.5 F Pulse Rate 63 Respiratory Rate 18 Blood Pressure 111/62 Pulse Oximetry 97 Oxygen Delivery Me thod [ Room Air Current Rate & Del nancy] Oxygen Delivery Me thod Room Air Oxygen Flow Rate 2 Fraction of Inspir ed Oxygen Hydration adequate: Yes Nausea and vomiting: No Pain level: 1 Mental status: Baseline
[2019-06-12] MEDS: pantoprazole 40 mg SDV IVP (08:26)
--- NOTE | 2019-06-12 09:38 | PC.NURSE ---
Patient set up for 2hours, tolerated regular diet. Patient states he is ready to go home.
[2019-06-12 12:09] LABS: Glucose Point of Care 126 mg/dL (70-110)
--- NOTE | 2019-06-12 13:52 | PM.DCS ---
Discharge Providers Date of Admission: 06/09/19 12:14 Date of Discharge: June 12, 2019 Attending Provider at Admission: Robbin Quinonez Attending Provider at Discharge: Robbin Quinonez Diagnoses at Discharge Discharge Diagnosis (1) Acute GI bleeding: Status: Acute (2) DM type 2 (diabetes mellitus, type 2): Status: Acute Reason for Visit Reason for Visit: Reason For Visit: GI BLEED Hospital Course Hospital Course: Very pleasant 73-year-old gentleman with history of extensive diverticulosis was admitted for management after multiple episodes of hematochezia with current jelly stools and fresh blood. He was admitted to intensive care unit, with monitoring of blood counts. Empirically treated with PPI. His aspirin was discontinued. He denies history of significant cardiovascular disease with OR or CVA, and this appears to have been for primary prophylaxis only. His hemoglobin stabilized without requiring transfusion, and remained steady around 10. He underwent coloscopic evaluation without finding of further bleeding, with severe diverticulosis. Location of soft thickening on CT abdomen pelvis, possibly due to past recurrent diverticulitis episodes, did not appear remarkable on colonoscopic evaluation, and not requiring any biopsies. He is feeling much better. Tolerating diet, and is eager to return home. His aspirin is discontinued at discharge. He was cleared for discharge by surgery without need for follow-up unless there is a recurrent issue. Please follow-up on his anemia. Physical Exam Const: COMMON NORMALS: no apparent distress and oriented x3 OTHER: Awake, alert. Not in distress. Pleasant, conversant, has a list of questions. In good spirits. HENMT: COMMON NORMALS: oropharynx normal Neck/C-Spine: COMMON NORMALS: no JVD Resp: COMMON NORMALS: normal respiratory effort and clear to auscultation bilaterally AUSCULTATION: clear to auscultation bilaterally Cardio: COMMON NORMALS: no JVD, regular rhythm, S1 normal heart sound, S2 normal heart sound and no murmurs RHYTHM: regular rhythm HEART SOUNDS: S1 normal and S2 normal GI: COMMON NORMALS: normal to inspection, nondistended, normoactive bowel sounds, soft to palpation and non-tender PALPATION: Yes soft Extremity: COMMON NORMALS: no joint enlargement and no pedal edema Neuro: COMMON NORMALS: oriented x3 and moves all extremities Skin: COMMON NORMALS: no rashes or lesions noted GENERAL SKIN EXAM: no rashes or lesions noted Discharge Data Data Completed and Pending: Completed Studies During Hospitalization Category Date Time Status CT abdomen pelvis w con* [id number] Urge nt Cat Scan 06/09/19 10:49 Completed XR chest 1V mary ble [id number] Urgent Exams 06/09/19 10:49 Completed Pending at discharge Category Date Time Status Leukocyte Reduced RBC Routine Lab 06/09/19 11:17 Results Retype for XM Rou jorge Lab 06/09/19 11:17 Results Type and Screen R outine Lab 06/09/19 11:17 Results Labs from last 24 hours 06/12/19 06/12/19 06/12/19 11:39 06:28 05:00 WBC RBC Hgb Hct MCV MCH MCHC RDW Plt Count MPV Neut % (Auto) Lymph % (Auto) [place] % (Auto) Eos % (Auto) Baso % (Auto) Neut # (Auto) Lymph # (Auto) [place] # (Auto) Eos # (Auto) Baso # (Auto) Nucleated RBC % (a uto) Nucleated RBCs # Sodium 140 Potassium 3.8 Chloride 104 Carbon Dioxide 27 Anion Gap 12.8 BUN 10 Creatinine 1.1 Glucose 113 POC Glucose 126 120 Calculated Osmolal ity 287 Calcium 8.5 06/12/19 06/11/19 06/11/19 05:00 21:35 17:06 WBC 5.9 RBC 3.31 L Hgb 10.0 L Hct 31.2 L MCV 94.3 H MCH 30.2 MCHC 32.1 RDW 13.3 Plt Count 192 MPV 12.2 H Neut % (Auto) 57.4 Lymph % (Auto) 27.0 [place] % (Auto) 11.9 Eos % (Auto) 2.9 Baso % (Auto) 0.5 Neut # (Auto) 3.4 Lymph # (Auto) 1.6 [place] # (Auto) 0.7 Eos # (Auto) 0.2 Baso # (Auto) 0.0 Nucleated RBC % (a uto) 0 Nucleated RBCs # 0.0 Sodium Potassium Chloride Carbon Dioxide Anion Gap BUN Creatinine Glucose POC Glucose 140 92 Calculated Osmolal ity Calcium Vitals: Last Vital Signs Temp 98.4 F 06/12/19 13:18 Pulse 83 06/12/19 13:18 Resp 18 05/01/20 13:18 BP 116/69 06/12/19 13:18 Pulse Ox 96 06/12/19 13:18 Discharge Plan Discharge Patient Disposition: Home, Self-Care Condition: Stable Prescriptions: Continued multivitamin Tablet 1 tab PO DAILY RF: 0 Vitamin C 1,000 mg Tablet 1,000 mg PO BID RF: 0 Benadryl 25 mg Capsule 25 mg PO BEDTIME PRN (Reason: Sleep) RF: 0 metformin 500 mg tablet extended release 24 hr 500 mg PO BEDTIME RF: 0 esomeprazole magnesium 20 mg capsule,delayed release(DR/EC) 20 mg PO DAILY RF: 0 metoprolol tartrate 25 mg tablet 25 mg PO DAILY RF: 0 Discontinued aspirin 81 mg Tablet,Chewable 81 mg PO DAILY RF: 0 Discharge Orders: Discharge Order (Routine); Ordered 06/12/19 Ordered By: Robbin Quinonez Referrals: Maco Hurtado MD [Family Provider] - 06/18/19 2:00 pm Discharge Diet: Advance as tolerated and Diabetic Discharge Activity: Increase activity as tolerated Patient Instructions: Type 2 Diabetes, Gastrointestinal Bleeding (DC) Activity Restrictions/Additional Instructions: If you experience recurrence of bleeding, any severe abdominal pain, spiking fevers, or other abnormal symptoms, please seek medical attention. Include foods rich in iron. Rise slowly from laying to sitting and sitting to standing as it may take some time for anemia to improve. Discharge Attestations Time Spent in Discharge Care*: greater than 30 min Quality Metrics Clinical Quality Measures During this hospital stay, did patient experience: None Coding Level of Care Code Acute Director Of Housing And Energy Services for Javed Rust Diagnoses Acute GI bleeding K92.2 DM type 2 (diabetes mellitus, type 2) E11.9
== END 2019-06-12 14:15 | disposition home or self-care (01) | DRG 378 ==
LOC: ER 12:40 → ICU 12:40 → MEDSURG 06-11 14:50
PROVIDERS: Surgery; Admitting Provider Internal Medicine; Emergency Provider Family Medicine; Family Provider Family Medicine; Visit Provider Internal Medicine
PROC: 0DJD8ZZ Inspection of Lower Intestinal Tract, Via Natural or Artificial Opening Endoscopic (ICD-10-PCS; CPT 45378; principal; 2019-06-11 08:55)
DX: K57.31 Diverticulosis of large intestine without perforation or abscess with bleeding (principal); D62 Acute posthemorrhagic anemia; K92.1 Melena; E11.9 Type 2 diabetes mellitus without complications; I10 Essential (primary) hypertension; F17.210 Nicotine dependence, cigarettes, uncomplicated; K64.8 Other hemorrhoids
CPT/HCPCS: 12345; 36415; 36416; 45378; 71045; 74177; 80048; 80053; 82962; 83605; 83690; 85018; 85025; 85610; 85730; 86850; 86900; 86920; 96375; 99282; C9113; J2001; J2405; J2704; J7030; J7040; J7050

== ENCOUNTER 2019-12-23 12:45 | Emergency (ER) | payer MEDICARE, OTHER, SELFPAY ==
[2019-12-23 12:49] VITALS: BP 156/89; PULSE 69; RESP 18; TEMP 36.4; O2SAT 98; BMI 27.9
[2019-12-23 14:13] LABS: Basophils % 0.4 %; Eosinophils # 0.2 10^3/uL (0.0-0.8); Eosinophils % 1.4 %; Hematocrit 43.5 % (42.0-52.0); Hemoglobin 13.7 g/dL (11.7-16.6); Lymphocytes # 1.2 10^3/uL (0.8-4.8); Lymphocytes % 11.5 %; Mean Corpuscular HGB Conc 31.5 g/dL (30.0-36.0); Mean Corpuscular Volume 92.2 fL (80-94); Mean Platelet Volume 11.9 fL (7.4-10.4); Monocytes # 0.9 10^3/uL (0.2-0.9); Monocytes % 8.8 %; Neutrophils # 8.19 10^3/uL (1.8-7.7); Neutrophils % 77.4 %; Nucleated Red Blood Cells % 0 %; Platelet Count 210 10^3/cmm (130-400); Red Blood Count 4.72 10^6/uL (4.1-5.3); White Blood Count 10.6 10^3/uL (4.0-10.0)
[2019-12-23 14:52] LABS: Alanine Aminotransferase 22 U/L (0-41); Albumin Level 4.1 g/dL (3.5-5.2); Alkaline Phosphatase 112 IU/L (40-130); Anion Gap 13.2 (5-19); Aspartate Amino Transferase 30 U/L (0-40); Blood Urea Nitrogen 21 mg/dL (8-23); Calcium 8.6 mg/dL (8.5-10.5); Carbon Dioxide 25 mmol/L (22-29); Chloride 100 mmol/L (98-107); Creatinine Clr Calc Pharmacy 69.9467; Globulin 2.8 g/dL (1.3-4.6); Glucose 119 mg/dL (65-115); Lipase 3 U/L (13-60); Osmolality Calculated 282 mOsm/kg (285-295); Potassium 4.2 mmol/L (3.5-5.1); Sodium 134 mmol/L (136-145); Total Bilirubin 0.6 mg/dL (0.15-1.2); Total Protein 6.9 g/dL (6.6-8.7)
--- NOTE | 2019-12-23 15:51 | CTR_ITS ---
PROCEDURE INFORMATION: Exam: CT Abdomen And Pelvis Without Contrast Exam date and time: 12/23/2019 4:04 PM Age: 74 years old Clinical indication: Nausea and vomiting; Abdominal pain; Flank; Left; Prior surgery; Surgery type: Gb; Additional info: Flank pain TECHNIQUE: Imaging protocol: Computed tomography of the abdomen and pelvis without contrast. Radiation optimization: All CT scans at this facility use at least one of these dose optimization techniques: automated exposure control; mA and/or kV adjustment per patient size (includes targeted exams where dose is matched to clinical indication); or iterative reconstruction. COMPARISON: CT abdomen pelvis w con* [id number] 06/09/2019 12:15 PM RADIATION DOSE METRICS: Total DLP (mGy-cm): 965.8 FINDINGS: Limitations: The absence of intravenous contrast lessens the sensitivity of this study for solid organ abnormalities. Liver: There is no focal abnormality within the liver. Gallbladder and bile ducts: There has been a cholecystectomy. Pancreas: There is fatty atrophy of the pancreas. Spleen: The spleen is normal. Adrenal glands: The adrenal glands are normal. Kidneys and ureters: There is a 3 mm stone in the proximal left ureter. Stone measures approximately 1200 Hounsfield units and is possibly visible on the c d stripper image. There is a left renal collecting system calcification. There is moderate left hydronephrosis. There is perinephric stranding around the left kidney consistent with acute obstruction. There is a right renal collecting system calcification. There is no evidence of right hydronephrosis. There is no stone in the right ureter. Stomach and bowel: Extensive diverticulosis is present in the distal colon. There is no evidence of colitis/diverticulitis. There is a periumbilical hernia which contains a loop of bowel without evidence of obstruction or incarceration. Appendix: A normal appendix is identified. Intraperitoneal space: There is no evidence of free intraperitoneal fluid. Vasculature: Unremarkable. No abdominal aortic aneurysm. Lymph nodes: Unremarkable. No enlarged lymph nodes. Urinary bladder: There is mild thickening of the urinary bladder wall which could represent muscular hypertrophy from chronic outlet obstruction. There is a small bladder diverticulum along the anterior aspect of the bladder. Reproductive: The prostate demonstrates moderate nonspecific enlargement. The seminal vesicles are normal. Prostate volume is approximately 60 cc. Bones/joints: The lumbar spine demonstrates moderate degenerative changes at multiple levels. Soft tissues: Unremarkable. CT/CT kidney stone [id number] IMPRESSION: 1. Obstructing stone in the proximal left ureter. 2. Periumbilical hernia which is containing a loop of bowel. 3. Enlarged prostate. Radiation Dose CTDIVOL = (mGy): DLP = 965.8 (mGy-cm)
--- NOTE | 2019-12-23 15:52 | W.ED.MALEGU ---
HPI - Male Genitourinary General: Chief complaint: Urogenital-Male Stated complaint: L LOW BACK PAIN, VOMIT Time Seen by Provider: 12/23/19 15:29 History of Present Illness: HPI Narrative: 74-year-old male presents complaining of left flank pain radiating down into the groin. Began this morning around 4 AM it woke him from sleep its intermittently kind of wax and wane at its worst he is unable to find any comfortable position the pain becomes so intense he gets nauseated and vomits is drastically improved since its peak reported earlier today. He has no history of renal stones he has no history of hematuria or prostate issues that he can recall. Denies dysuria urgency or frequency. Onset (ago): hour(s) Duration: intermittent Location: left flank Radiation: left inguinal region Severity: severe Severity scale (1-10): 10 Quality: aching and stabbing Relieving factors: none Exacerbating factors: none Associated symptoms: Deny discharge, dysuria, fevers/chills, hematuria, nausea, rash, swelling, urinary incontinence, urinary retention, mass or vomiting Review of Systems Const: Denies: fever(s), chills, body aches, change in appetite, fatigue or malaise ENMT: Denies: throat pain, ear or mastoid pain, nasal discharge or nasal congestion Card: Denies: chest pain, edema, dyspnea on exertion or orthopnea Resp: Denies: dyspnea, productive cough or non-productive cough GI: Denies: nausea or vomiting : Denies: dysuria, urinary incontinence or hematuria Skin/Breast: Denies: rash or pruritus PFSH ED PFSH: Medical History DM type 2 (diabetes mellitus, type 2) Left ureteral calculus Pleural condition Pleurodesis ~2017? Recurrent pleural effusion on left Surgical History History of lung surgery Status post colonoscopy Family History Father Liver disease Mother Colon cancer Smoker Hypertension Atherosclerosis Social History Smoking and tobacco status: light tobacco smoker pipe Pipe Details: Occ in the past Alcohol intake: never Lives independently: Yes Household members: spouse Marital status: Current occupational status: retired Physical Exam Const: COMMON NORMALS: no acute distress GENERAL APPEARANCE: cooperative and comfortable ORIENTATION/CONSCIOUSNESS: Yes awake, Yes oriented to person, Yes oriented to place and Yes oriented to time HENMT: COMMON NORMALS: normocephalic, atraumatic and hearing grossly normal bilaterally HEAD & SCALP: normocephalic and atraumatic Neck/C-Spine: COMMON NORMALS: no JVD Resp: COMMON NORMALS: normal respiratory effort, No retractions, No use of accessory muscles and clear to auscultation bilaterally AUSCULTATION: clear to auscultation bilaterally Cardio: COMMON NORMALS: no JVD, regular rate, regular rhythm and No murmurs present (Cardio) RATE: regular rate RHYTHM: regular rhythm GI: COMMON NORMALS: Soft to palpation and No hepatosplenomegaly present AUSCULTATION: Yes normoactive bowel sounds PALPATION: Yes Soft to palpation, No Tenderness to palpation present (GI), No Guarding due to palpation present (GI) and Yes No hepatosplenomegaly present : BLADDER/KIDNEY EXAM: Yes CVA tenderness Back/Pelvis: GENERAL BACK: Yes CVA tenderness CVA tenderness: left Extremity: COMMON NORMALS: normal to inspection, capillary refill normal, no clubbing, cyanosis or edema, no calf tenderness and no pedal edema Neuro: SENSORIUM/ORIENTATION: Yes oriented to person, Yes oriented to place and Yes oriented to time Skin: COMMON NORMALS: no rashes or lesions noted GENERAL SKIN EXAM: no rashes or lesions noted Course Vital Signs: Vital signs: Vital Signs Temperature 97.5 F L 12/23/19 12:49 Pulse Rate 72 12/23/19 17:41 Respiratory Rate 18 12/23/19 17:41 Blood Pressure 116/68 12/23/19 17:41 Pulse Oximetry 98 12/23/19 17:41 MDM - Male MDM Narrative: Medical decision making narrative: Discharge home with pain medications. He is already on tamsulosin 1. We will have him strain his urine and follow-up with Dr. Pena next week. Return if his uncontrolled pain Lab Data: Labs: Lab Results 12/23/19 12/23/19 12/23/19 Range/Units 14:07 14:07 15:44 WBC 10.6 H (4.0-10.0) 10^3/ uL RBC 4.72 (4.1-5.3) 10^6/u L Hgb 13.7 (11.7-16.6) g/dL Hct 43.5 (42.0-52.0) % MCV 92.2 (80-94) fL MCH 29.0 (28.0-34.0) pg MCHC 31.5 (30.0-36.0) g/dL RDW 14.0 (12.1-15.1) % Plt Count 210 (130-400) 10^3/c mm MPV 11.9 H (7.4-10.4) fL Neut % (Auto) 77.4 % Lymph % (Auto) 11.5 % [place] % (Auto) 8.8 % Eos % (Auto) 1.4 % Baso % (Auto) 0.4 % Neut # (Auto) 8.19 H (1.8-7.7) 10^3/u L Lymph # (Auto) 1.2 (0.8-4.8) 10^3/u L [place] # (Auto) 0.9 (0.2-0.9) 10^3/u L Eos # (Auto) 0.2 (0.0-0.8) 10^3/u L Baso # (Auto) 0.0 (0.0-0.1) 10^3/u L Nucleated RBC % (a uto) 0 % Nucleated RBCs # 0.0 /100WBC Sodium 134 L (136-145) mmol/L Potassium 4.2 (3.5-5.1) mmol/L Chloride 100 (98-107) mmol/L Carbon Dioxide 25 (22-29) mmol/L Anion Gap 13.2 (5-19) BUN 21 (8-23) mg/dL Creatinine 1.1 (0.7-1.2) mg/dL GFR Calculation Not Reportable Glucose 119 H (65-115) mg/dL Calculated Osmolal ity 282 L (285-295) mOsm/k g Calcium 8.6 (8.5-10.5) mg/dL Total Bilirubin 0.6 (0.15-1.2) mg/dL AST 30 (0-40) U/L ALT 22 (0-41) U/L Alkaline Phosphata se 112 (40-130) IU/L Total Protein 6.9 (6.6-8.7) g/dL Albumin 4.1 (3.5-5.2) g/dL Globulin 2.8 (1.3-4.6) g/dL Lipase 3 L (13-60) U/L Urine Color Yellow (Yellow) Urine Appearance Clear (CLEAR) Urine pH 5 (5-7) Ur Specific Gravit y 1.020 (1.005-1.030) Urine Protein Neg (Negative) Urine Glucose (UA) Norm (Normal) Urine Ketones 1+ H (Negative) Urine Blood 2+ H (Negative) Urine Nitrate Negative (Negative) Urine Bilirubin Neg (Negative) Urine Urobilinogen Neg (Negative) mg/dL Ur Leukocyte Magalys ase Negative (Negative) Urine RBC 0-4 H (0-2) /hpf Urine WBC None (0-5) /hpf Ur Squamous Epith Cells 0-4 H (0-5) /hpf Amorphous Sediment Not Reportable Urine Bacteria 1+ H (NONE) /hpf Urine Mucus 1+ /hpf Discharge Plan Discharge Patient Disposition: Home Clinical Impression: Left nephrolithiasis Condition: Stable Prescriptions: New hydrocodone-acetaminophen 5-325 mg tablet 1 tab PO Q6H PRN (Reason: pain) Qty: 20 RF: 0 No Action esomeprazole magnesium [Nexium] 40 mg capsule,delayed release(DR/EC) 40 mg PO DAILY RF: 0 sulfamethoxazole-trimethoprim 800-160 mg tablet 1 tab PO BID Qty: 20 RF: 0 Zofran 4 mg tablet 4 mg PO Q6H PRN (Reason: nausea and vomiting) Qty: 15 RF: 0 multivitamin Tablet 1 tab PO DAILY RF: 0 ascorbic acid (vitamin C) [Vitamin C] 1,000 mg Tablet 1,000 mg PO QAM RF: 0 diphenhydramine HCl [Benadryl] 25 mg Capsule 25 mg PO BEDTIME PRN (Reason: unknown) RF: 0 metformin 500 mg tablet extended release 24 hr 500 mg PO QPM RF: 0 metoprolol tartrate 25 mg tablet 25 mg PO DAILY RF: 0 tamsulosin 0.4 mg capsule 0.4 mg PO DAILY RF: 0 Discharge Orders: Discharge Order (Routine); Ordered 12/23/19 Ordered By: Dipesh Fernandez Discharge Diet: Usual diet Discharge Activity: Increase activity as tolerated Activity Restrictions/Additional Instructions: Please contact Dr. Pena's office tomorrow and let them know how you are doing. If you have worsening problems the pain is uncontrolled return to the emergency room. Please strain your urine to collect the stone if you should have it to pass it. We usually anticipate a 3 mm stone would be passed spontaneously. Coding Level of Care Code ED Director Of Manufacturing for Chg Fwd Exam Comprehensive
[2019-12-23 16:52] LABS: Add Urine Microscopic? YES; Bilirubin Urine Neg (Negative); Blood Urine 2+ (Negative); Glucose Urine UA Norm (Normal); Ketones Urine 1+ (Negative); Leukocyte Esterase Urine Negative (Negative); Nitrate Urine Negative (Negative); Protein Urine Neg (Negative); Urine Appearance Clear (CLEAR); Urine Color Yellow (Yellow); Urobilinogen Urine Neg (Negative); pH Urine 5 (5-7)
[2019-12-23 16:53] LABS: Add Urine Culture? Yes; Bacteria Urine 1+ /hpf; Mucus Urine 1+ /hpf; RBC Urine 0-4 /hpf (0-2); Squamous Epithelial Cell Urine 0-4 /hpf (0-5)
[2019-12-23 17:41] VITALS: BP 116/68; PULSE 72; RESP 18; O2SAT 98
== END 2019-12-23 17:43 | disposition home or self-care (01) ==
PROVIDERS: Emergency Medicine; Emergency Provider Family Medicine
DX: N20.0 Calculus of kidney (principal); E11.9 Type 2 diabetes mellitus without complications; Z87.442 Personal history of urinary calculi; F17.290 Nicotine dependence, other tobacco product, uncomplicated
CPT/HCPCS: 12345; 74176; 80053; 81001; 83690; 85025; 87086; 99281; 99283

== ENCOUNTER 2019-12-25 07:14 | Outpatient (CLI) | payer MEDICARE, OTHER, SELFPAY ==
--- NOTE | 2019-12-25 07:15 | XR_ITS ---
WS: [id number] KUB, 12/25/2019 Clinical Data: RENAL STONE Comparison: CT abdomen and pelvis, 12/23/2019. Findings: No abnormal intraabdominal masses are seen. There is no dilatated small bowel or evidence of obstruct ion. There is a calcification to the left of the L3-L4 interspace which may represent the proximal left ur eteral calculus. There may be a calcification overlying the superior pole of the left kidney. The rig ht kidney is obscured by fecal material. No abnormalities of the pelvis are seen. There is a large am ount of fecal material throughout colon. There are clips in the right upper quadrant from a cholecyst ectomy. 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 XR/XR KUB [id number] Impression: 1. Possible proximal left ureteral calculus. 2. Possible upper pole left renal calculus.
== END 2019-12-25 07:15 | disposition home or self-care (01) ==
LOC: RAD 07:25
PROVIDERS: PCP Family Medicine; Visit Provider Nurse Practitioner Family
DX: N20.0 Calculus of kidney (principal)
CPT/HCPCS: 74018

== ENCOUNTER 2019-12-30 10:12 | Outpatient (CLI) | payer MEDICARE, OTHER, SELFPAY ==
--- NOTE | 2019-12-30 10:15 | XR_ITS ---
WS: [id number] Exam: XR KUB [id number] Date/Time of Exam: 12/30/2019 10:15 AM Reason For Exam: LEFT URETERAL STONE Comparison 12/25/2019. There are 2 small calcification superimposing the left renal silhouette most likely renal calculi. Pr eviously noted left paraspinal calcification identified on the prior exam now appears to be in the le ft pelvis possibly within the bladder or the left UV junction. No bowel obstruction or free air. Mode rate amount of stool in the colon. Signs of prior cholecystectomy. Visualized organ margins are other leary intact. Degenerative changes of the L-spine and mild levoscoliosis. XR/XR KUB [id number] IMPRESSION: 1. Previously noted 3 mm left paraspinal calcification is probably in the left pelvis. This may represent a urinary tract stone in the bladder or in the regio n of the left UVJ. 2. There are 2 small calcification superimposing left kidney which may represen t nonobstructing stones. 3. No acute abdominal finding.
== END 2019-12-30 10:13 | disposition home or self-care (01) ==
LOC: RAD 10:17
PROVIDERS: PCP Family Medicine; Visit Provider Urology
DX: N20.1 Calculus of ureter (principal); N20.0 Calculus of kidney
CPT/HCPCS: 74018; 81003

== ENCOUNTER 2020-01-12 08:59 | Outpatient (CLI) | payer MEDICARE, OTHER, SELFPAY ==
--- NOTE | 2020-01-12 09:00 | XRR_ITS ---
PROCEDURE INFORMATION: Exam: XR Abdomen, 1 View Exam date and time: 01/12/2020 9:11 AM Clinical indication: Pain; Patient status: Conscious; Pain: Lt ureter; Additional info: Ureteral calculus TECHNIQUE: Imaging protocol: XR of the abdomen. Views: Frontal supine view of the abdomen. 1 View. COMPARISON: No relevant prior studies available. FINDINGS: Gastrointestinal tract: Bowel gas pattern is nonspecific. No mass effect upon the bowel loops. Distal rectal gas. Scattered loops of air filled small bowel none of which are dilated. Organs: No calcifications are seen overlying the renal outlines or the expected course of the right or left ureters. No suspicious calcifications within the pelvis. Bones/joints: No acute process within the osseous structures of the spine or pelvis. Other findings: No appreciable calcifications XR/XR KUB [id number] IMPRESSION: Bowel gas pattern is nonspecific.
== END 2020-01-12 09:00 | disposition home or self-care (01) ==
LOC: RAD 09:08
PROVIDERS: PCP Family Medicine; Visit Provider Urology
DX: N20.1 Calculus of ureter (principal)
CPT/HCPCS: 74018; 81003; 82365; 88300

== ENCOUNTER 2020-07-14 09:09 | Outpatient (CLI) | payer MEDICARE, OTHER, SELFPAY ==
--- NOTE | 2020-07-14 09:00 | XR_ITS ---
WS: [id number] KUB, AP view, 07/14/2020 Clinical Data: N20.0 - Calculus of kidney Comparison: KUB, 01/12/2020. Findings: No abnormal intraabdominal masses or calcifications are seen. There is no dilatated small bowel or ev idence of obstruction. There is a large amount of fecal material throughout the colon. There is severe degenerative change o f the lumbar vertebral bodies. XR/XR KUB [id number] Impression: Negative KUB.
== END 2020-07-14 09:10 | disposition home or self-care (01) ==
LOC: RAD 09:12
PROVIDERS: PCP Family Medicine; Visit Provider Urology
DX: N20.0 Calculus of kidney (principal)
CPT/HCPCS: 74018; 81003

== ENCOUNTER 2021-07-18 09:11 | Outpatient (CLI) | payer MEDICARE, OTHER, SELFPAY ==
--- NOTE | 2021-07-18 09:15 | XR_ITS ---
WS: [id number] Exam: XR KUB [id number] Date/Time of Exam: 07/18/2021 9:15 AM Reason For Exam: LEFT URETERAL CALCULUS Comparison 07/14/2020. No bowel obstruction or free air. Signs of prior cholecystectomy. No sign of organ enlargement. 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 XR/XR KUB [id number] IMPRESSION: 1. No acute abdominal process.
== END 2021-07-18 09:12 | disposition home or self-care (01) ==
LOC: RAD 09:17
PROVIDERS: PCP Family Medicine; Visit Provider Urology
DX: N40.1 Benign prostatic hyperplasia with lower urinary tract symptoms; N20.2 Calculus of kidney with calculus of ureter
CPT/HCPCS: 51741; 51798; 74018; 81003; 99213

== ENCOUNTER → 2022-01-16 10:10 | Outpatient (BNVA) | payer MEDICARE, OTHER, SELFPAY | PROVIDERS: PCP Family Medicine; Visit Provider Urology | DX: N40.1 Benign prostatic hyperplasia with lower urinary tract symptoms (principal); N20.0 Calculus of kidney | CPT/HCPCS: 51798; 99213 ==

== ENCOUNTER → 2023-05-31 09:52 | Outpatient (BNVA) | payer MEDICARE, OTHER, SELFPAY | PROVIDERS: PCP Family Medicine; Visit Provider Podiatrist Foot & Ankle Surgery | DX: M72.2 Plantar fascial fibromatosis; M24.571 Contracture, right ankle; E11.9 Type 2 diabetes mellitus without complications; Z79.84 Long term (current) use of oral hypoglycemic drugs | CPT/HCPCS: 73630; 99203 ==

== ENCOUNTER → 2024-05-08 11:31 | Outpatient (BNVA) | payer MEDICARE, OTHER, SELFPAY | PROVIDERS: PCP Family Medicine; Visit Provider Orthopaedic Surgery | DX: M25.561 Pain in right knee (principal); G89.29 Other chronic pain | CPT/HCPCS: 73560; 73565; 99204 ==

== ENCOUNTER 2025-02-08 15:34 | Outpatient (CLI) | payer MEDICARE, OTHER, SELFPAY ==
--- NOTE | 2025-02-08 15:43 | USCV_ITS ---
Alessandro Panda Age: 79 Gender: M : 1945 Exam Date: 02/08/2025 15:48 Ordering Phys: Maco Hurtado MD Technologist: ROCÍO [place] [facility] [place]: left leg pain HISTORY: Lower extremity pain-LEFT PROCEDURES: Venous duplex imaging was performed in only the left lower extremity. The following venous structures were evaluated: common femoral vein, profunda vein, proximal portion of the greater saphenous vein, superficial femoral vein, and the popliteal vein. In addition, the posterior tibial and peroneal trunk were evaluated. FINDINGS: Normal 2-D Doppler and augmentation and compressibility throughout the lower extremity venous structures. Additional imaging through the proximal calf veins also reveals no thrombus. Limited evaluation of the greater saphenous vein is patent with no thrombus. CONCLUSIONS No evidence of left lower extremity DVT. Alonzo Lora MD (Electronically Signed) Final Date: 08 February 2025 16:30 S
== END 2025-02-08 15:35 | disposition home or self-care (01) ==
LOC: RAD 15:38
PROVIDERS: PCP Family Medicine; Visit Provider Family Medicine
DX: M79.605 Pain in left leg (principal)
CPT/HCPCS: 93971